=== PATIENT | female | born 1985 | race Two or more races ===

== ENCOUNTER 2019-12-15 07:25 | Emergency (ER) | payer BC ==
[~2019-12-15] VITALS: Ht 175.3 cm; Wt 66.2 kg
--- NOTE | 2019-12-15 07:31 | NUR ---
CAME IN FOR VAGINAL SPOTTING, MID CHEST PAIN, SHARP, NON-RADIATING, L LEF PAIN AND MOUTH NUMBNESS, ON NUVA RING "SCARED OF CLOT". TO ER BED 16, HOOKED TO MONITOR, CHANGED TO HOSP GOWN, WARM BLANKET PROVIDED, AWAITING MD IGLESIAS.
--- NOTE | 2019-12-15 08:00 | NUR ---
DR PEDROZA AT BEDSIDE
[2019-12-15 08:19] LABS: BASOPHILS # (AUTO) 0.1 /CMM (0.0-0.2); BASOPHILS % (AUTO) 0.8 % (0.0-2.0); EOSINOPHILS % (AUTO) 1.3 % (0.0-6.0); HEMATOCRIT 39 % (33-45); HEMOGLOBIN 13.2 g/dL (11.5-14.8); LYMPHOCYTES # (AUTO) 1.8 /CMM (0.8-4.8); LYMPHOCYTES % (AUTO) 28.3 % (20.0-44.0); MEAN CORPUSCULAR HGB CONC 34 g/dl (31.0-36.0); MEAN CORPUSCULAR VOLUME 91 fL (82-100); MONOCYTES # (AUTO) 0.3 /CMM (0.1-1.30); MONOCYTES % (AUTO) 4.5 % (2.0-12.0); NEUTROPHILS # (AUTO) 4.2 /CMM (1.8-8.9); NEUTROPHILS % (AUTO) 65.1 % (43.0-81.0); PLATELET COUNT (AUTO) 260 /CMM (150-450); RED BLOOD CELL COUNT(AUTO) 4.29 MIL/uL (4.0-5.2); WHITE BLOOD COUNT (AUTO) 6.4 K/uL (4.3-11.0)
[2019-12-15 08:27] LABS: CALCIUM, SERUM 9.1 mg/dL (8.5-10.1); CARBON DIOXIDE 27 mmol/L (21-32); CHLORIDE 106 mmol/L (98-107); CREATININE 0.7 mg/dL (0.6-1.3); GLUCOSE 87 mg/dL (74-106); POTASSIUM 3.7 mmol/L (3.5-5.1); SODIUM SERUM 141 mmol/L (136-145); UREA NITROGEN, BLOOD 7 mg/dL (7-18)
[2019-12-15 08:32] LABS: ALANINE AMINOTRANSFERASE 9 U/L (12-78); ALBUMIN 3.8 g/dL (3.4-5.0); ALKALINE PHOSPHATASE 42 U/L (46-116); ASPARTATE AMINOTRANSFERASE 11 U/L (15-37); BILIRUBIN,DIRECT 0.1 mg/dL (0.0-0.2); BILIRUBIN,TOTAL 0.6 mg/dL (0.2-1.0); LIPASE 114 U/L (73-393); TOTAL PROTEIN, SERUM 7.3 g/dL (6.4-8.2)
--- NOTE | 2019-12-15 11:01 | NUR ---
IV removed. Catheter intact and site benign. Pressure and 4x4 applied to site. No bleeding noted.Patient discharged to home in stable condition. Written and verbal after care instructions given. Patient verbalizes understanding of instruction.
[2019-12-15 11:02] VITALS: BP 119/71
== END 2019-12-15 11:02 | disposition home or self-care (01) ==
LOC: ER 07:29
DX: R07.89 Other chest pain (principal); Z91.010 Allergy to peanuts
CPT/HCPCS: 36415; 71045-TC; 80048-TC; 80076-TC; 83690-TC; 84484-TC; 84703-TC; 85025-TC; 85378-TC

== ENCOUNTER 2022-10-03 22:21 | Emergency (ER) | payer BC ==
[~2022-10-03] VITALS: Ht 175.3 cm; Wt 68.0 kg
[2022-10-03 22:35] VITALS: BP 137/79
== END 2022-10-03 22:39 | disposition home or self-care (01) ==
LOC: ER 22:22
DX: S01.01XA Laceration without foreign body of scalp, initial encounter (principal); Z91.010 Allergy to peanuts; Z91.018 Allergy to other foods; W22.8XXA Striking against or struck by other objects, initial encounter; Y93.89 Activity, other specified; Y92.89 Other specified places as the place of occurrence of the external cause; Y99.8 Other external cause status